=== PATIENT | male | born 1980 | race Caucasian/White ===

== ENCOUNTER 2017-08-27 07:44 | Emergency (ER) | payer BC ==
[2017-08-27 08:12] VITALS: BP 129/70
--- NOTE | 2017-08-27 09:13 | UC ---
Throat Pain/Nasal Anoop HPI - HPI Summary HPI Summary: 37 yo male with the onset of sore throat, fever and chills x 1 day myalgias no cough , cp or sob son recently dxed with strep - History of Current Complaint Chief Complaint: UCRespiratory Stated Complaint: CHILLS HEADACHE SORE THROAT ACHY Time Seen by Provider: 08/27/17 07:55 Hx Obtained From: Patient Onset/Duration: Gradual Onset, Lasting Hours Severity: Moderate Pain Intensity: 6 Pain Scale Used: 0-10 Numeric Cough: None Associated Signs & Symptoms: Positive: Fever - Allergies/Home Medications Allergies/Adverse Reactions: Allergies Allergy/AdvReac Type Severity Reaction Status Date / Time [id number] Allergy Swelling Uncoded 08/27/17 08:04 Home Medications: Home Medications Naproxen Sod/Diphenhydramine [Aleve PM 220-25 mg] 1 tab PO ONCE PRN 08/27/17 [ History Confirmed 08/27/17] Naproxen Sodium [Aleve] 220 mg PO ONCE PRN 08/27/17 [History Confirmed 08/27/17] PMH/Surg Hx/FS Hx/Imm Hx Previously Healthy: Yes - Surgical History Surgical History: Yes Surgery Procedure, Year, and Place: LASER EYE SURGERY- MD OFFICE. achillis tendon repair 2013, vasectomy - Family History Known Family History: Positive: Hypertension - Social History Alcohol Use: Occasionally Substance Use Type: None Smoking Status (MU): Never Smoked Tobacco Review of Systems Constitutional: Fever, Chills Skin: Negative Eyes: Negative ENT: Sore Throat Respiratory: Negative Cardiovascular: Negative Gastrointestinal: Negative Genitourinary: Negative Motor: Negative Neurovascular: Negative Musculoskeletal: Arthralgia, Myalgia Neurological: Negative Psychological: Negative All Other Systems Reviewed And Are Negative: Yes Physical Exam Triage Information Reviewed: Yes Appearance: Well-Appearing, No Pain Distress, Well-Nourished Vital Signs: Initial Vital Signs Temp 98.8 F 08/27/17 08:07 Pulse 103 08/27/17 08:07 Resp 18 08/27/17 08:07 BP 129/70 08/27/17 08:07 Pulse Ox 99 08/27/17 08:07 Eyes: Positive: Conjunctiva Clear ENT: Positive: Pharyngeal erythema, Uvula midline. Negative: Nasal congestion, Nasal drainage, Tonsillar swelling, Tonsillar exudate, Muffled voice, Hoarse voice Dental Exam: Normal Neck: Positive: Supple, Nontender, Enlarged Nodes @ - ant cervical Respiratory: Positive: Lungs clear, Normal breath sounds, No respiratory distress, No accessory muscle use Cardiovascular: Positive: RRR, No Murmur Abdomen Description: Positive: Nontender Neurological: Positive: Alert Psychological Exam: Normal Skin Exam: Normal Throat Pain/Nasal Course/Dx - Differential Dx/Diagnosis Provider Diagnoses: acute pharyngitis. household exposure to strep Discharge - Discharge Plan Condition: Stable Disposition: HOME Prescriptions: Amoxicillin PO (*) [Amoxicillin 875 MG (*)] 875 mg PO BID #20 tab Patient Education Materials: Pharyngitis (ED) Referrals: Aldo Matute DO [Primary Care Provider] - 3 Days (in three days if not better)
== END 2017-08-27 09:09 | disposition home or self-care (01) ==
LOC: UCCORT 07:44
DX: Z20.89 Contact with and (suspected) exposure to other communicable diseases (principal); Z91.018 Allergy to other foods; J02.9 Acute pharyngitis, unspecified
CPT/HCPCS: 87502; 87651; 99212; G0463